=== PATIENT | male | born 1970 | race Caucasian/White ===

== ENCOUNTER 2021-10-26 15:35 | Emergency (ER) | payer MEDICAID, SELFPAY ==
[2021-10-26] VITALS (26 sets, daily range): BP systolic 113–179; BP diastolic 70–107; PULSE 94–109; RESP 12–18; TEMP 36.4–36.6; O2SAT 95–100; BMI 25.8; BMI 25.1
--- NOTE | 2021-10-26 15:41 | PC.NURSE ---
ACCUCHECK 56
--- NOTE | 2021-10-26 15:42 | XR_ITS ---
FINAL REPORT CLINICAL HISTORY: cough FINDINGS: A single view of the chest was obtained. The heart size and pulmonary vascularity are within normal limits. The mediastinum is within normal limits. No acute pulmonary abnormality is identified. The bony thorax is intact. IMPRESSION: No active cardiopulmonary disease. Reviewed, Interpreted and Dictated by Daniel Sibley III, MD Transcribed by Joshua Aguila Authenticated by Daniel Sibley III, MD on 10/26/2021 04:23:40 PM [facility]
--- NOTE | 2021-10-26 15:45 | PC.NURSE ---
LABS DRAWN FROM IV SITE AFTER D50 WAS GIVEN
--- NOTE | 2021-10-26 15:45 | CT_ITS ---
FINAL REPORT CLINICAL HISTORY: altered mental status FINDINGS: Axial images of the head were obtained without contrast. Coronal reformatted images were also obtained.This study was performed with techniques to keep radiation doses as low as reasonably achievable (ALARA). Individualized dose reduction techniques using automated exposure control or adjustment of mA and/or kV according to the patient's size were employed. There is no evidence of intracranial hemorrhage or mass. The ventricular size is within normal limits. There is no evidence of shift of the midline structures. No abnormal extra axial fluid collection is identified. No skull abnormality is seen on the bone window images. There is mild mucosal thickening in the sinuses. IMPRESSION: No acute intracranial abnormality. Reviewed, Interpreted and Dictated by Daniel Sibley III, MD Transcribed by Joshua Aguila Authenticated by Daniel Sibley III, MD on 10/26/2021 04:23:42 PM [facility]
--- NOTE | 2021-10-26 15:47 | ECG_ITS ---
APPROVED REPORT Exam: Resting ECG HR:98 bpm ECG Measurements Heart Rate 98 AXES ID 149 P 61 QRSd 81 QRS 67 QT 349 T 65 QTc 405 Conclusion SINUS RHYTHM Late r wave progression ABNORMAL ECG UNCONFIRMED REPORT Electronically signed by : Jj Dobbs MD 10/27/2021 09:24:40
--- NOTE | 2021-10-26 15:53 | PC.NURSE ---
Patient to CT with rad techs
--- NOTE | 2021-10-26 16:02 | PC.NURSE ---
Patient back from CT with rad techs
--- NOTE | 2021-10-26 16:05 | PC.NURSE ---
SISTER AT BEDSIDE REPORTS PT LAST SEEN NORMAL BY MOTHER LASTNIGHT. STATES THE MOTHER HAS HX OF DEMENTIA.
[2021-10-26 16:14] LABS: Chloride 97 mmol/L (98-107); Sodium 131 mmol/L (136-145)
[2021-10-26 16:15] LABS: Potassium 4.3 mmoL/L (3.5-5.1)
[2021-10-26 16:17] LABS: Alanine Aminotransferase 20 U/L (12-78); Albumin Level 3.9 g/dl (3.5-5.0); Albumin/Globulin Ratio 1.6 (1.1-1.8); Alkaline Phosphatase 82 U/L (38-126); Anion Gap 13.3 mEq/L (5-15); Aspartate Amino Transferase 40 U/L (17-59); Bilirubin,Total 0.6 mg/dl (0.2-1.3); Blood Urea Nitrogen 13 mg/dl (9-20); Carbon Dioxide 25 mmol/L (22.0-30.0); Creatinine Clearance Estimated 143 mL/min (50-200); Estimated Glomerular Filt Rate 120 ml/min (>60); GFR (African American) 145 ML/MIN (>60); Globulin 2.5 g/dL (1.3-3.2); Lipase 22 U/L (23-300); Total Protein,Serum 6.4 g/dl (6.3-8.2)
[2021-10-26 16:24] LABS: Ethyl Alcohol < 10 mg/dl (0-10)
[2021-10-26 16:25] LABS: Microscopic, Urine URINE MICROSCOPIC (MICROSCOPIC)
[2021-10-26 16:25] LABS: Acetone, Serum (Rapid) None Detected (None Detect)
[2021-10-26 16:27] LABS: Appearance,Urine CLEAR (Clear); Bilirubin,Urine Negative (Negative); Blood, Urine Negative (Negative); Color,Urine YELLOW (Yellow); Glucose,Urine (UA) 1+ (Negative); Ketones,Urine TRACE (Negative); Leukocyte Esterase,Urine Negative (Negative); Nitrate,Urine Negative (Negative); Protein,Urine Negative (Negative); Urobilinogen,Urine 0.2 EU/dl (0.2)
[2021-10-26 16:27] LABS: Coronavirus 19, PCR Not Detected (NotDetected); Influenza A, PCR Not Detected (NotDetected); Influenza B, PCR Not Detected (NotDetected)
--- NOTE | 2021-10-26 16:30 | PC.NURSE ---
PT CONTINUES TO HAVE AMS. HAS EXPRESSIVE APHASIA, WILL NOT ANSWER QUESTIONS OR FOLLOW COMMANDS. PT AWAKE
[2021-10-26 16:38] LABS: Barbiturates Screen,Urine Negative ng/ml (<200)
[2021-10-26 16:39] LABS: Amphetamine/Metha Screen,Urine Negative ng/ml (<1000); Bacteria,Urine 1+ /lpf; Benzodiazepines Screen,Urine Negative ng/ml (<200); RBC,Urine Occasional #/hpf (0-3); Squamous Epithelial Cell,Urine Occasional #/hpf (0-5)
[2021-10-26 16:40] LABS: Cannabinoid Screen,Urine Negative ng/ml (<50)
[2021-10-26 16:41] LABS: Cocaine Screen,Urine Negative ng/ml (<300); Methadone Screen,Urine Negative ng/ml (<300)
[2021-10-26 16:42] LABS: Opiate Screen,Urine Negative ng/ml (<300)
[2021-10-26 16:42] LABS: POC Glucose,Bedside 179 (70-110)
[2021-10-26 16:43] LABS: Phencyclidine Screen,Urine Negative ng/ml (<25)
--- NOTE | 2021-10-26 16:45 | HMH.EDAMS ---
ED Disposition Clinical Impression: Delirium due to general medical condition, Acute CVA (cerebrovascular accident) Altered mental status Qualifiers: Altered mental status type: disorientation Qualified Code(s): R41.0 - Disorientation, unspecified Disposition: Xfer Critical Access Hosp Condition on Discharge: Fair Instructions: DI for Altered Mental Status Referrals: Afia Arriaga APRN [Primary Care Provider] - - Critical Care Critical Care Time: No Attestation: On 10/26/21, the high probability of a clinically significant, sudden or life threatening deterioration of the following system(s) required my full and direct attention, intervention and personal management. The time I documented below is in addition to time spent performing reported procedures but includes the following listed in this critical care notation. Medical Decision Making - Medical Records Medical records reviewed: Yes: I reviewed the patient's medical records. - [place] Inquiry Pt receiving controlled substance: No Vital Signs: 10/26/21 15:42 10/26/21 16:30 10/26/21 16:57 Temperature 97.5 F L 97.8 F Temperature Source Oral Oral Pulse Rate 96 H Pulse Rate [Radial] 106 H Respiratory Rate 18 14 Blood Pressure 178/96 H Blood Pressure [Right Arm] 160/107 H Blood Pressure Mean 123 Blood Pressure Mean [Right Arm] 124 Blood Pressure Position [Right Arm] Sitting 02 Sat by Pulse Oximetry 98 99 Oxygen Delivery Method Room Air 10/26/21 17:00 10/26/21 17:30 10/26/21 18:30 Temperature Temperature Source Pulse Rate 94 H 101 H 105 H Pulse Rate [Radial] Respiratory Rate 12 12 12 Blood Pressure 167/93 H 179/100 H 166/98 H Blood Pressure [Right Arm] Blood Pressure Mean 117 126 120 Blood Pressure Mean [Right Arm] Blood Pressure Position [Right Arm] 02 Sat by Pulse Oximetry 100 100 99 Oxygen Delivery Method - Lab Data Lab Results 10/26/21 15:48: WBC 8.8, RBC 5.04, Hgb 15.8, Hct 49.6, MCV 98.5 H, MCH 31.3 H, MCHC 31.8, RDW 14.4, Plt Count 318, MPV 8.0, Neut % (Auto) 84.0 H, Lymph % (Auto) 10.0, [place] % (Auto) 4.7, Eos % (Auto) 0.3, Baso % (Auto) 1.0, Neut # (Auto) 7.4, Lymph # (Auto) 0.9, [place] # (Auto) 0.4, Eos # (Auto) 0.0, Baso # (Auto) 0.1 10/26/21 15:48: APTT 26.6 10/26/21 15:48: Sodium 131 L, Potassium 4.3, Chloride 97 L, Carbon Dioxide 25, Anion Gap 13.3, BUN 13, Creatinine 0.70, Estimated Creat Clear 143, Estimated GFR 120, Est GFR ( Amer) 145, Glucose 810 H*, Calcium 8.0 L, Total Bilirubin 0.6, AST 40, ALT 20, Alkaline Phosphatase 82, Troponin I < 0.01, NT-Pro-B Natriuret Pep 89.4, Total Protein 6.4, Albumin 3.9, Globulin 2.5, Albumin/Globulin Ratio 1.6, Lipase 22 L, TSH 0.58, Acetone Level None detected 10/26/21 15:48: Plasma/Serum Alcohol < 10 10/26/21 15:48: PT 10.9, INR 0.96 10/26/21 16:16: SARS-CoV-2 (PCR) Not detected, Influenza A Untype (PCR) Not detected, Influenza Type B (PCR) Not detected 10/26/21 16:20: Urine Color Yellow, Urine Appearance Clear, Urine pH 7.0, Ur Specific [place] 1.020, Urine Protein Negative, Urine Glucose (UA) 1+, Urine Ketones Trace, Urine Blood Negative, Urine Nitrate Negative, Urine Bilirubin Negative, Urine Urobilinogen 0.2, Ur Leukocyte Esterase Negative, Urine RBC Occasional, Urine WBC 3-5, Ur Squamous Epith Cells Occasional, Urine Bacteria 1+ 10/26/21 16:20: Urine Opiates Screen Negative, Urine Methadone Screen Negative, Ur Barbituates Screen Negative, Ur Phencyclidine Scrn Negative, Ur Amphetamines Screen Negative, U Benzodiazepines Scrn Negative, Urine Cocaine Screen Negative, U Marijuana (THC) Screen Negative 10/26/21 16:32: POC Glucose 179 H 10/26/21 16:38: Lactate 1.3 10/26/21 17:45: Random Glucose 149 H 10/26/21 18:59: POC Glucose 123 H 10/26/21 19:38: Troponin I < 0.01 Result diagrams: 10/26/21 15:48 10/26/21 15:48 Orders (Tests/Meds): ED MEDICATIONS Discontinued Medications Generic Name Dose Route Start Last Admin Trade Name Christo Perry
[2021-10-26 16:46] LABS: Basophils # 0.1 K/mm3 (0-0.2); Eosinophils % 0.3 % (0.1-12.0); Hematocrit 49.6 % (42.0-52.0); Hemoglobin 15.8 g/dL (14.1-18.0); Lymphocytes # 0.9 K/mm3 (0.7-4.5); Mean Corpuscular HGB Conc 31.8 g/dL (31.8-35.4); Mean Corpuscular Hemoglobin 31.3 pg (27.0-31.2); Mean Corpuscular Volume 98.5 fl (80-94); Monocytes # 0.4 K/mm3 (0.1-1.0); Monocytes % 4.7 % (1.7-9.3); Neutrophils # 7.4 K/mm3 (1.8-7.8); Platelet Count 318 K/mm3 (142-424); Red Blood Count 5.04 M/mm3 (4.60-6.20); Red Cell Distribution Width 14.4 % (11.5-17.5); White Blood Count 8.8 K/mm3 (4.8-10.8)
[2021-10-26 16:48] LABS: Thyroid Stimulating Hormone 0.58 uIU/mL (0.465-4.68)
[2021-10-26 16:57] LABS: Lactic Acid 1.3 mmol/L (0.7-2.1)
--- NOTE | 2021-10-26 17:10 | PC.NURSE ---
PT CONTINUES TO BE CONFUSED
--- NOTE | 2021-10-26 17:11 | PC.NURSE ---
ED MD at bedside for update on POC; sister at bedside
[2021-10-26 17:14] LABS: NT Pro Brain Natriuretic Pep. 89.4 pg/mL (0-125)
[2021-10-26 17:19] LABS: Troponin I < 0.01 ng/ml (0.00-0.034)
[2021-10-26 17:24] LABS: Glucose 810 mg/dl (74-100)
--- NOTE | 2021-10-26 17:35 | CT_ITS ---
PROCEDURE INFORMATION: Exam: CT Angiography Neck With Contrast Exam date and time: 10/26/2021 5:35 PM Age: 50 years old Clinical indication: Other: AMS; Additional info: Altered TECHNIQUE: Imaging protocol: Computed tomography angiography of the neck with contrast. 3D rendering (Not supervised by radiologist): MIP and/or 3D reconstructed images were created by the technologist. Radiation optimization: All CT scans at this facility use at least one of these dose optimization techniques: automated exposure control; mA and/or kV adjustment per patient size (includes targeted exams where dose is matched to clinical indication); or iterative reconstruction. Contrast material: ISOVUE 370; Contrast volume: 100 ml; Contrast route: INTRAVENOUS (IV); COMPARISON: CT HEAD/BRAIN WO CON 10/26/2021 3:55 PM FINDINGS: Right common carotid artery: No stenosis. No dissection or occlusion. Right internal carotid artery: Severe right ICA stenosis at the bulb greater than 70% by NASCET criteria. Right external carotid artery: No occlusion or stenosis of the origin. Left common carotid artery: No stenosis. No dissection or occlusion. Left internal carotid artery: Severe left ICA stenosis at the bulb, greater than 70% by NASCET criteria. Left external carotid artery: No occlusion or stenosis of the origin. Right vertebral artery: No stenosis. No dissection or occlusion. Left vertebral artery: No stenosis. No dissection or occlusion. Soft tissues: Normal. No significant soft tissue swelling. Bones/joints: No acute fracture. IMPRESSION: 1. Severe right ICA stenosis at the bulb greater than 70% by NASCET criteria. 2. Severe left ICA stenosis at the bulb, greater than 70% by NASCET criteria. REFERENCES: NASCET CRITERIA. The degree of internal carotid artery stenosis is based on NASCET criteria. Normal is no stenosis. Mild is less than 50% stenosis. Moderate is 50-69% stenosis. Severe is 70% to 99% stenosis. Total occlusion is no detectable patent lumen.
--- NOTE | 2021-10-26 17:35 | CT_ITS ---
PROCEDURE INFORMATION: Exam: CT Angiography Head With Contrast, Arteriography Exam date and time: 10/26/2021 5:35 PM Age: 50 years old Clinical indication: Other: AMS; Additional info: Altered TECHNIQUE: Imaging protocol: Computed tomography angiography of the head with contrast. Exam focused on the arteries. 3D rendering (Not supervised by radiologist): MIP and/or 3D reconstructed images were created by the technologist. Radiation optimization: All CT scans at this facility use at least one of these dose optimization techniques: automated exposure control; mA and/or kV adjustment per patient size (includes targeted exams where dose is matched to clinical indication); or iterative reconstruction. Contrast material: ISOVUE 370; Contrast volume: 100 ml; Contrast route: INTRAVENOUS (IV); COMPARISON: CT HEAD/BRAIN WO CON 10/26/2021 3:55 PM FINDINGS: ANTERIOR CIRCULATION: Right internal carotid artery: Unremarkable. Intracranial segment is patent with no significant stenosis. No aneurysm. Right middle cerebral artery: Unremarkable. No occlusion or significant stenosis. No aneurysm. Right anterior cerebral artery: Unremarkable. No occlusion or significant stenosis. No aneurysm. Left internal carotid artery: Unremarkable. Intracranial segment is patent with no significant stenosis. No aneurysm. Left middle cerebral artery: Unremarkable. No occlusion or significant stenosis. No aneurysm. Left anterior cerebral artery: Unremarkable. No occlusion or significant stenosis. No aneurysm. POSTERIOR CIRCULATION: Right vertebral artery: Unremarkable. No occlusion or significant stenosis. No aneurysm. Left vertebral artery: Unremarkable. No occlusion or significant stenosis. No aneurysm. Basilar artery: Unremarkable. No occlusion or significant stenosis. No aneurysm. Right posterior cerebral artery: Unremarkable. No occlusion or significant stenosis. No aneurysm. Left posterior cerebral artery: Unremarkable. No occlusion or significant stenosis. No aneurysm. Brain: No definite mass, mass effect, or midline shift. Cerebral ventricles: No ventriculomegaly. Bones/joints: Unremarkable. No acute fracture. Soft tissues: Unremarkable. IMPRESSION: No large vessel stenosis or occlusion.
[2021-10-26 17:46] LABS: INR 0.96 (0.9-1.1); Prothrombin Time 10.9 seconds (10.1-12.5)
--- NOTE | 2021-10-26 17:47 | PC.NURSE ---
Glucose was redrawn and sent to lab; no needs at this time
--- NOTE | 2021-10-26 18:00 | PC.NURSE ---
SISTER AT BEDSIDE UPDATED ON PLAN OF CARE. PT CONFUSED CONTINUES TO HAVE EXPRESSIVE APHASIA. HAS DIFFICULTY FOLLOWING COMMANDS
[2021-10-26 18:03] LABS: Glucose,Random 149 mg/dL (74-100)
[2021-10-26 18:10] LABS: Activated Partial Thrombo Time 26.6 seconds (22.8-30.6)
--- NOTE | 2021-10-26 18:30 | PC.NURSE ---
SISTER AT BEDSIDE
[2021-10-26 19:06] LABS: POC Glucose,Bedside 123 (70-110)
[2021-10-26 20:11] LABS: Troponin I < 0.01 ng/ml (0.00-0.034)
--- NOTE | 2021-10-26 20:53 | PC.NURSE ---
BG 97 at this time
[2021-10-26 20:59] LABS: POC Glucose,Bedside 97 (70-110)
--- NOTE | 2021-10-26 21:00 | PC.NURSE ---
pt resting quietly. sister @ bedside call light within reach
--- NOTE | 2021-10-26 22:13 | PC.NURSE ---
BG 86. Reported to RN
--- NOTE | 2021-10-26 22:15 | PC.NURSE ---
pt currently on list @ [facility]. pt resting quietly with call light in within reach
[2021-10-26 22:19] LABS: POC Glucose,Bedside 86 (70-110)
--- NOTE | 2021-10-26 23:00 | PC.NURSE ---
BG 90 reported to RN
--- NOTE | 2021-10-26 23:08 | PC.NURSE ---
pt voiced no c/o @ this time. pt resting call light within reach
[2021-10-26 23:17] LABS: POC Glucose,Bedside 90 (70-110)
[2021-10-27] VITALS (10 sets, daily range): BP systolic 121–153; BP diastolic 58–95; PULSE 90–102; RESP 14–17; TEMP 36.6; O2SAT 97–99
--- NOTE | 2021-10-27 | PC.NURSE ---
Patient is resting in bed. Was reoriented to location. Patient is oriented to self and .
--- NOTE | 2021-10-27 01:41 | PC.NURSE ---
pt used urinal in bed at this time
--- NOTE | 2021-10-27 02:00 | PC.NURSE ---
Pt is resting in bed.
--- NOTE | 2021-10-27 02:23 | PC.NURSE ---
pt laying in bed sleeping on left side.
--- NOTE | 2021-10-27 03:00 | PC.NURSE ---
Patient is currently resting in bed. Remains hemodynamically stable.
--- NOTE | 2021-10-27 03:44 | PC.NURSE ---
pt laying in bed sleeping on left side.
--- NOTE | 2021-10-27 04:44 | PC.NURSE ---
Pt resting well in bed.
--- NOTE | 2021-10-27 06:05 | PC.NURSE ---
Pt laying in bed. neurology technician notified to draw morning labs.
[2021-10-27 06:36] LABS: Basophils # 0.2 K/mm3 (0-0.2); Basophils % 1.9 % (0.1-2.0); Eosinophils # 0.1 K/mm3 (0.0-0.4); Eosinophils % 1.1 % (0.1-12.0); Hematocrit 47.7 % (42.0-52.0); Hemoglobin 15.3 g/dL (14.1-18.0); Lymphocytes # 1.5 K/mm3 (0.7-4.5); Lymphocytes % 17.8 % (10-50); Mean Corpuscular HGB Conc 32.2 g/dL (31.8-35.4); Mean Corpuscular Hemoglobin 31.6 pg (27.0-31.2); Mean Corpuscular Volume 98.1 fl (80-94); Mean Platelet Volume 7.8 fl (7.4-10.4); Monocytes # 0.7 K/mm3 (0.1-1.0); Monocytes % 7.9 % (1.7-9.3); Neutrophils # 6.2 K/mm3 (1.8-7.8); Neutrophils % 71.2 % (37.0-80.0); Platelet Count 297 K/mm3 (142-424); Red Blood Count 4.86 M/mm3 (4.60-6.20); Red Cell Distribution Width 14.6 % (11.5-17.5); White Blood Count 8.7 K/mm3 (4.8-10.8)
[2021-10-27 06:46] LABS: Anion Gap 10.2 mEq/L (5-15); Blood Urea Nitrogen 11 mg/dl (9-20); Calcium 8.8 mg/dl (8.4-10.2); Carbon Dioxide 26 mmol/L (22.0-30.0); Chloride 105 mmol/L (98-107); Creatinine Clearance Estimated 143 mL/min (50-200); Estimated Glomerular Filt Rate 120 ml/min (>60); GFR (African American) 145 ML/MIN (>60); Glucose 131 mg/dl (74-100); Potassium 4.2 mmoL/L (3.5-5.1); Sodium 137 mmol/L (136-145)
[2021-10-27 07:05] LABS: POC Glucose,Bedside 100 (70-110)
--- NOTE | 2021-10-27 08:02 | PC.NURSE ---
Called for bed placement. Said they would call back after discharges this morning at 0900.
[2021-10-27 09:05] LABS: POC Glucose,Bedside 291 (70-110)
--- NOTE | 2021-10-27 09:46 | PC.NURSE ---
[facility] called. Patient is going to [address] [place] [address]. Received a phone number to call report.
--- NOTE | 2021-10-27 10:18 | PC.NURSE ---
called report to charge nurse on 5A at [facility]
--- NOTE | 2021-10-27 10:19 | PC.NURSE ---
[facility] has been called
== END 2021-10-27 10:58 | disposition critical access hospital (66) ==
PROVIDERS: Emergency Medicine; Emergency Provider Emergency Medicine; PCP Nurse Practitioner Family
DX: R41.82 Altered mental status, unspecified (principal); R47.9 Unspecified speech disturbances; E16.2 Hypoglycemia, unspecified; I65.23 Occlusion and stenosis of bilateral carotid arteries; Z88.0 Allergy status to penicillin; Z81.8 Family history of other mental and behavioral disorders
CPT/HCPCS: 36415; 70450; 70496; 70498; 71045; 80048; 80053; 80305; 81001; 82009; 82947; 82962; 83605; 83690; 83880; 84443; 84484; 85025; 85610; 85730; 93005; 96374; 96375; 99285; C9803; Q9967; U0003; U0005